=== PATIENT | male | born 1930 | race Caucasian/White ===

== ENCOUNTER 2017-06-22 09:12 | Emergency (ER) | payer MEDICARE ==
[2017-06-22 09:20] VITALS: TEMP 98.2
[2017-06-22] MEDS ORDERED: IPRATROPIUM-ALBUTEROL 3 ML NEB INHALATION STA (09:46)
[2017-06-22] MEDS ORDERED: ACET/COD 240MG/24MG LIQ 10 ML SYRG PO ONE (09:46)
[2017-06-22] MEDS ORDERED: IBUPROFEN 600 MG TAB PO STA (09:46)
--- NOTE | 2017-06-22 09:49 | ED ---
General Adult HPI - General Chief complaint: Upper Respiratory Infection Stated complaint: SOB cough Time Seen by Provider: 06/22/17 09:26 Source: patient, RN notes reviewed, old records reviewed Mode of arrival: ambulatory Limitations: no limitations - History of Present Illness Initial comments: This is a 87-year-old male the ER for evaluation of cough and congestion, chest pain from coughing. Patient has high blood pressure diabetes history. Denies a chest pain symptoms for 3 weeks now. Patient has not been on any treatment. He states he is cannot shake this cough. He is coughing up phlegm he can't clear his throat. No fevers no shortness of breath. No significant modifying factors no travel history no sick contacts - Related Data Home Medications Medication Instructions Recorded Confirmed Aspirin [Adult Low Dose Aspirin EC] 81 mg PO DAILY 04/22/15 04/24/15 Carvedilol [Coreg] 12.5 mg PO BID 04/22/15 04/24/15 Digoxin [Lanoxin] 125 mcg PO DAILY 04/22/15 04/24/15 Famotidine [Pepcid] 20 mg PO BID 04/22/15 04/24/15 Pioglitazone [Actos] 45 mg PO DAILY 04/22/15 04/24/15 glipiZIDE [Glucotrol] 10 mg PO DAILY 04/22/15 04/24/15 hydrALAZINE HCL [Apresoline] 50 mg PO BID 04/22/15 04/24/15 metFORMIN HCL [Glucophage] 500 mg PO BID 04/22/15 04/24/15 sitaGLIPtin [Januvia] 100 mg PO DAILY 04/22/15 04/24/15 Allergies Allergy/AdvReac Type Severity Reaction Status Date / Time No Known Allergies Allergy Verified 04/22/15 11:33 Review of Systems ROS Statement: Those systems with pertinent positive or pertinent negative responses have been documented in the HPI. ROS Other: All systems not noted in ROS Statement are negative. Past Medical History Past Medical History: Diabetes Mellitus, Hypertension Additional Past Medical History / Comment(s): ABDOMINAL CRAMPING History of Any Multi-Drug Resistant Organisms: None Reported Past Surgical History: Back Surgery, Cholecystectomy, Hernia Repair, Joint Replacement, Orthopedic Surgery, Pacemaker Additional Past Surgical History / Comment(s): LEFT HIP REPLACEMENT, RIGHT KNEE REPLACEMENT, BRIAN SHOULDER SX Past Anesthesia/Blood Transfusion Reactions: Postoperative Nausea & Vomiting ( PONV) Type of Cardiac Device: Permanent Pacemaker Device Placement Date:: 2012 Past Psychological History: No Psychological Hx Reported Smoking Status: Never smoker Past Alcohol Use History: Rare Past Drug Use History: None Reported General Exam Limitations: no limitations General appearance: alert, in no apparent distress Head exam: Present: atraumatic, normocephalic, normal inspection Eye exam: Present: normal appearance, PERRL, EOMI. Absent: scleral icterus, conjunctival injection, periorbital swelling ENT exam: Present: normal exam, mucous membranes moist Neck exam: Present: normal inspection. Absent: tenderness, meningismus, lymphadenopathy Respiratory exam: Present: normal lung sounds bilaterally. Absent: respiratory distress, wheezes, rales, rhonchi, stridor Cardiovascular Exam: Present: regular rate, normal rhythm, normal heart sounds. Absent: systolic murmur, diastolic murmur, rubs, gallop, clicks GI/Abdominal exam: Present: soft, normal bowel sounds. Absent: distended, tenderness, guarding, rebound, rigid Extremities exam: Present: normal inspection, full ROM, normal capillary refill. Absent: tenderness, pedal edema, joint swelling, calf tenderness Back exam: Present: normal inspection Neurological exam: Present: alert, oriented X3, CN II-XII intact Psychiatric exam: Present: normal affect, normal mood Skin exam: Present: warm, dry, intact, normal color. Absent: rash Course Vital Signs 06/22/17 06/22/17 09:17 10:19 Temperature 98.2 F Pulse Rate 69 60 Respiratory 20 16 Rate Blood Pressure 137/68 O2 Sat by Pulse 94 L Oximetry - Reevaluation(s) Reevaluation #1: 06/22/17 10:22 Patient in no acute distress feeling well, aware results, patient like to try outpatient therapy will return if symptoms continue to progress EKG Findings - EKG Comments: EKG Findings:: EKG shows paced rhythm rate of 61, ID 128, QRS 156, QTc 428 Medical Decision Making - Medical Decision Making 87 male the ER with cough congestion sputum production positive pneumonia. Patient's in no distress, no chest pain or shortness of breath. Patient can be discharged - Radiology Data Radiology results: report reviewed (Chest x-ray positive for pneumonia), image reviewed Disposition Clinical Impression: Upper respiratory infection, Community acquired pneumonia Disposition: HOME SELF-CARE Condition: Good Instructions: Upper Respiratory Infection (ED) Referrals: Karina Galarza DO [Primary Care Provider] - 1-2 days
--- NOTE | 2017-06-22 10:11 | XR ---
EXAMINATION TYPE: XR chest 2V DATE OF EXAM: 06/22/2017 COMPARISON: 08/13/2011 INDICATION: Cough and congestion TECHNIQUE: Frontal and lateral views of the chest are obtained. FINDINGS: The heart size is mildly prominent. Pacemaker overlies left chest.. The pulmonary vasculature is normal. Mild right lower lobe infiltrate may be present. Correlate for pneumonia. IMPRESSION: 1. A mild right lower lobe infiltrate may be present. Clinical correlation recommended. 2. Mild stable cardiomegaly
[2017-06-22 10:22] VITALS: RESP 16
[2017-06-22] MEDS ORDERED: cefTRIAXone 250 MG VIAL IM STA (10:23)
[2017-06-22] MEDS ORDERED: AZITHROMYCIN 500 MG TAB PO STA (10:23)
[2017-06-22] MEDS ORDERED: cefTRIAXone 1,000 MG VIAL (IM USE) IM STA (10:34)
[2017-06-22 10:41] VITALS: BP 183/79; PULSE 63
== END 2017-06-22 11:01 | disposition home or self-care (01) ==
LOC: EC 09:12
DX: J18.9 Pneumonia, unspecified organism (principal); J06.9 Acute upper respiratory infection, unspecified; E11.9 Type 2 diabetes mellitus without complications; I10 Essential (primary) hypertension; Z79.82 Long term (current) use of aspirin; Z79.84 Long term (current) use of oral hypoglycemic drugs; Z79.899 Other long term (current) drug therapy
CPT/HCPCS: 94640; 71046; 99284; 96372; J0696

== ENCOUNTER → 2020-01-15 | Outpatient (CLI) | payer MEDICARE ==
[2020-01-15 12:19] LABS: Basophils # (A) 0.1 k/uL (0-0.2); Basophils % (A) 1 %; Eosinophils # (A) 0.5 k/uL (0-0.7); Eosinophils % (A) 5 %; HCT 45.1 % (39.0-53.0); HGB 14.1 gm/dL (13.0-17.5); Hypochromasia Slight; Lymphocytes # (A) 2.4 k/uL (1.0-4.8); Lymphocytes % (A) 23 %; MCH 31.2 pg (25.0-35.0); MCHC 31.2 g/dL (31.0-37.0); MCV 99.9 fL (80.0-100.0); Mean Platelet Volume 8.8; Monocytes # (A) 0.6 k/uL (0-1.0); Monocytes % (A) 5 %; Neutrophils # (A) 6.7 k/uL (1.3-7.7); Neutrophils % (A) 65 %; Platelet Count 230 k/uL (150-450); RBC 4.52 m/uL (4.30-5.90); RDW 13.7 % (11.5-15.5); WBC 10.3 k/uL (3.8-10.6)
[2020-01-15 21:16] LABS: African American GFR (CKD) 69.6 (60.0-200.0); Albumin 3.8 g/dL (3.80-4.90); Albumin/Globulin Ratio 1.73 (1.60-3.17); BUN/Creat Ratio 26.36 Ratio (12.00-20.00); Calcium 9.2 mg/dL (8.7-10.3); Globulin 2.2 g/dL (1.6-3.3); Potassium 5.4 mmol/L (3.5-5.5); Total Bilirubin 0.3 mg/dL (0.3-1.2)
== END | disposition home or self-care (01) ==
LOC: LABWHC1 09:49
PROVIDERS: ATTEND Nurse Practitioner Adult Health
DX: I48.11 Longstanding persistent atrial fibrillation (principal); I42.8 Other cardiomyopathies
CPT/HCPCS: 36415; 80053; 85025

== ENCOUNTER → 2020-02-21 | Outpatient (CLI) | payer MEDICARE ==
--- NOTE | 2020-02-21 14:35 | XR ---
EXAMINATION TYPE: XR lumbar spine with bend/flex DATE OF EXAM: 02/21/2020 CLINICAL HISTORY: Low back pain for the last month. TECHNIQUE: Frontal, lateral, and dynamic flexion and extension lateral images of the lumbar spine are obtained. COMPARISON: None. FINDINGS: There are 5 lumbar type vertebral bodies identified. Slight levoconvex scoliotic curvature centered at L3-L4 level. Lumbar spine show straightening alignment. Vertebral body heights are maint ained. Moderate multilevel disc space narrowing with relative narrowing of L3-L4 level. Moderate to a dvanced multilevel anterior and lateral spurring. Moderate to severe diffuse vascular calcification o f overlying abdominal aorta. Dynamic flexion and extension images show minimal motion without change in alignment. Multilevel spinous process hypertrophy. Facet arthropathy lower lumbar spine. IMPRESSION: As above.
== END | disposition home or self-care (01) ==
LOC: RADXRMAIN 13:50
PROVIDERS: ATTEND Internal Medicine Interventional Cardiology
DX: M48.061 Spinal stenosis, lumbar region without neurogenic claudication (principal); M47.816 Spondylosis without myelopathy or radiculopathy, lumbar region
CPT/HCPCS: 72114

== ENCOUNTER 2020-05-08 06:42 | Day surgery (SDC) | payer MEDICARE ==
[2020-05-05 15:30] VITALS: BMI 24.0
[2020-05-08] MEDS ORDERED: LACTATED RINGERS 1,000 ML IV SCH (06:44)
[2020-05-08] MEDS ORDERED: ceFAZolin 1 GM in SODIUM CHLORIDE 0.9% 250 ML IRRIGATION PRN (06:44)
[2020-05-08] MEDS ORDERED: SODIUM CHLORIDE 0.9% 1,000 ML IV SCH (06:44)
[2020-05-08 07:11] LABS: Glucose,Whole Blood 126 mg/dL (75-99)
[2020-05-08 07:13] VITALS: RESP 16; TEMP 97.7
[2020-05-08 07:18] LABS: Basophils # (A) 0.1 k/uL (0-0.2); Basophils % (A) 1 %; Eosinophils # (A) 0.4 k/uL (0-0.7); Eosinophils % (A) 3 %; HCT 45.3 % (39.0-53.0); HGB 15.1 gm/dL (13.0-17.5); Lymphocytes # (A) 3.2 k/uL (1.0-4.8); Lymphocytes % (A) 25 %; MCH 32.1 pg (25.0-35.0); MCHC 33.3 g/dL (31.0-37.0); MCV 96.3 fL (80.0-100.0); Mean Platelet Volume 7.6; Monocytes # (A) 0.7 k/uL (0-1.0); Monocytes % (A) 6 %; Neutrophils % (A) 63 %; Platelet Count 275 k/uL (150-450); RBC 4.71 m/uL (4.30-5.90); RDW 13.8 % (11.5-15.5); WBC 12.6 k/uL (3.8-10.6)
[2020-05-08 07:51] LABS: Calcium 9.4 mg/dL (8.4-10.2); Potassium 4.3 mmol/L (3.5-5.1)
[2020-05-08] MEDS ORDERED: fentaNYL (PF) 50 MCG/ML 2 ML AMP ONE (08:12)
[2020-05-08] MEDS ORDERED: MIDAZOLAM 2 MG/2 ML VIAL ONE (08:12)
[2020-05-08] MEDS ORDERED: PROPOFOL 10 MG/ML 20 ML VIAL IV ONE (08:12)
[2020-05-08] MEDS ORDERED: PHENYLEPHRINE 10 MG/ML VIAL ONE (08:12)
[2020-05-08] MEDS ORDERED: IV FLUID CONTINUATION 900 ML IV ONE (08:17)
[2020-05-08] MEDS ORDERED: LIDOCAINE 1% INJ 10MG/ML (20 ML MDV) ONE ×2 (08:40)
[2020-05-08] MEDS ORDERED: LIDOCAINE 1% INJ 10MG/ML (20 ML MDV) SQ ONE (08:56)
[2020-05-08] MEDS ORDERED: ACETAMINOPHEN TAB 325 MG TAB PO PRN (09:51)
--- NOTE | 2020-05-08 11:02 | CE ---
CARDIAC ELECTROPHYSIOLOGY REPORT Anders Goldman is an 89-year-old male patient who has a biventricular pacemaker for complete heart block. The device is at [facility] for normal battery depletion. He was brought in for pacemaker generator change. Patient was brought to the EP lab in a fasting state. Written informed consent was obtained prior to the procedure. The left shoulder area was prepped and draped as per protocol and 1% lidocaine was used for local anesthesia. A 4 cm incision was made parallel to the deltopectoral groove, about 1.5 cm medial to it. The incision was carried down to the level of the pectoralis muscle and subfascial pocket was entered. The leads were freed. The LV lead was interrogated and connected to the new interrogator. The thresholds are excellent in the bipolar mode. Pacing impedance was stable. The lead had a kink along the shaft and the lead was then repaired. The [email or web address] repair kit was used. Silicone was applied and a tubing was applied over it and secured with 2 sutures over this area of kink. The old generator was removed. The new generator was implanted. This was a [employer] model number W1TR02 Angela KNOT BORER P, serial number [id number]. The leads and generator were then placed in subfascial pocket. The wound was closed in 3 layers per protocol. The P waves were 0.5 mV, pacing impedance 399 ohms. The patient was in atrial fibrillation. The R-waves from the right ventricle were 10.3 mV, pacing impedance 437 ohms and pacing threshold 1.75 V at 0.4 milliseconds. LV lead pacing impedance was 912 ohms. The pacing threshold in the bipolar mode was 1 V at 0.4 milliseconds. RESULT: 1. Successful biventricular pacemaker generator change. 2. Lead impedances and thresholds were excellent. 3. LV lead impedance was stable and thresholds were excellent in the bipolar mode. Kink noted in the LV lead, but without any breach in insulation and with normal impedances. This area was repaired with silicone and tubing and secured to the shaft of the lead. MMODL / IJN: [id number] /
[2020-05-08] MEDS ORDERED: ACETAMINOPHEN IV (For NPO) 1,000 MG in EMPTY BAG 1 BAG IVPB ONE (12:00)
[2020-05-08 14:02] VITALS: PULSE 60
[2020-05-08 14:05] VITALS: BP 154/71
[2020-05-08] MEDS ORDERED: metFORMIN 500 MG TAB PO SCH (17:30)
[2020-05-09] MEDS ORDERED: GLIMEPIRIDE 1 MG TAB PO SCH (07:30)
[2020-05-09] MEDS ORDERED: Liraglutide [Victoza 2-Pak] 0.6 MG/0.1 ML Pen.Injctr SQ SCH (09:00)
[2020-05-09] MEDS ORDERED: LOSARTAN 25 MG TAB PO SCH (09:00)
== END 2020-05-08 14:22 | disposition home or self-care (01) ==
LOC: CATHEP 06:42
PROVIDERS: ATTEND Internal Medicine Clinical Cardiac Electrophysiology
DX: Z45.010 Encounter for checking and testing of cardiac pacemaker pulse generator [battery] (principal); I44.2 Atrioventricular block, complete; I11.0 Hypertensive heart disease with heart failure; I50.9 Heart failure, unspecified; I48.11 Longstanding persistent atrial fibrillation; E78.2 Mixed hyperlipidemia; E11.9 Type 2 diabetes mellitus without complications; M19.90 Unspecified osteoarthritis, unspecified site; I25.10 Atherosclerotic heart disease of native coronary artery without angina pectoris; N28.9 Disorder of kidney and ureter, unspecified; Z87.891 Personal history of nicotine dependence; I42.8 Other cardiomyopathies; Z96.642 Presence of left artificial hip joint; Z98.890 Other specified postprocedural states; Z98.49 Cataract extraction status, unspecified eye; Z79.899 Other long term (current) drug therapy; J45.909 Unspecified asthma, uncomplicated; Z79.01 Long term (current) use of anticoagulants; Z79.84 Long term (current) use of oral hypoglycemic drugs; Z96.651 Presence of right artificial knee joint
CPT/HCPCS: 33229; 80048; 85025; C2621; J2250; J2370; J0690; J2001; J3010; J0131; J2704; 33218